=== PATIENT | male | born 1995 | race Caucasian/White ===

== ENCOUNTER 2020-09-03 20:15 | Emergency (ER) | payer OTHER ==
[2020-09-03 20:44] LABS: HEMOGLOBIN 16.6 gm/dl (14.0-17.5); RED BLOOD COUNT 5.38 M/UL (4.20-5.50)
[2020-09-03 21:02] LABS: BUN/CREATININE RATIO 18 (0-10)
[2020-09-04] MEDS ORDERED: ZOFRAN4 MG PO (19:07)
== END 2020-09-03 22:17 | disposition home or self-care (01) ==
LOC: ER1 20:15
PROVIDERS: Internal Medicine
DX: R07.9 Chest pain, unspecified (principal); E78.5 Hyperlipidemia, unspecified
CPT/HCPCS: 71046; 80053; 82550; 82553; 83735; 83874; 84484; 85025; 93005; 99285

== ENCOUNTER 2020-09-04 15:15 | Emergency (ER) | payer OTHER ==
[2020-09-04] MEDS ORDERED: ZOFRAN4 MG PO (19:07)
== END 2020-09-04 19:40 | disposition home or self-care (01) ==
LOC: ER1 15:15
DX: B34.9 Viral infection, unspecified (principal); Z20.822 Contact with and (suspected) exposure to COVID-19
CPT/HCPCS: 99284; U0002